=== PATIENT | female | born 1995 | race Caucasian/White ===

== ENCOUNTER 2024-04-19 22:01 | Emergency (ER) | payer BC, SELFPAY ==
--- NOTE | 2024-04-19 21:30 | RT.EKG_ITS ---
APPROVED REPORT Exam: Resting ECG Reason for Exam: Chest Pain Patient Location: E HR:95 bpm ECG Measurements Heart Rate 95 AXIS [place] 146 P 56 QRSd 87 QRS 51 QT 356 T 14 QTc 446 Conclusion Sinus rhythm...normal P axis, V-rate 60- 99 Physician: inverted t waves in III and V1-V3. No Stemi
--- NOTE | 2024-04-19 22:00 | DI.RAD_ITS ---
Exam(s) XR PORTABLE CHEST AP EXAM: XR PORTABLE CHEST AP CLINICAL HISTORY: central chest pressure. TECHNIQUE: 2D digital imaging was performed. COMPARISON: No exams were available for comparison FINDINGS: Single AP portable view. Heart size is upper normal. The mediastinum is not widened. Lungs are clear. No infiltrates nor obvious pleural effusions. IMPRESSION: No acute pulmonary findings on this single AP portable view of the chest. DATA REPOSITORY: RADIATION DOSE DELIVERED:
[2024-04-19 22:07] VITALS: BP 139/81; PULSE 97; RESP 16; TEMP 36.6; O2SAT 100
[2024-04-19 22:20] VITALS: RESP 19
[2024-04-19 22:21] VITALS: RESP 17
--- NOTE | 2024-04-19 22:26 | W.ED.GENAD ---
Discharge Plan Disposition Patient Disposition: Home Condition: Good Discharge Details Chief Complaint: Chest Pain Clinical Impression: Anxiety, Chest discomfort ED Provider: Michael Crandall Home Meds and New Rx's Prescriptions: No Action venlafaxine 100 mg tablet 150 mg PO DAILY clonidine HCl 0.1 mg tablet 0.05 mg PO DAILY Discharge Instructions Instructions: Chest Pain, Adult ED, Anxiety, Adult ED Additional Instructions: At this time as we have discussed together your workup is returned very reassuring. However there are 2 slight abnormalities. Your kidney function is slightly elevated, signifying mild stress on the kidneys. Please drink plenty of fluids and stay well-hydrated. Please avoid kidney irritating medications like ibuprofen. Additionally your thyroid stimulating hormone level is slightly elevated however your functional thyroid numbers are good. Please follow-up with your primary care provider in the next 6 to 12 months for recheck of your thyroid function. If you notice any worsening of your symptoms, or any new symptoms such as vomiting, diarrhea, fever, chills, shortness of breath, chest pain, numbness, weakness, or fainting , please return immediately to the emergency department for reevaluation. Please follow up with your primary care provider as soon as possible for reassessment and reevaluation. As always, it was a pleasure participating in your medical care today. HPI General Date/Time Provider Initiated Documentation: 04/19/24 22:04. HPI Narrative: This is a 28-year-old female with a past medical history of anxiety, who is also on an estrogen-based control, who presents today via EMS for chest discomfort and anxiety attack. Patient lives in [place] but was visiting a friend here in [facility]. They just had breakfast for dinner, and shortly thereafter she developed a pressure-like sensation in the center of her chest which was constant in nature. It continued for the following hour and then she was brought to the ER for further assessment. She did have an episode of nausea and vomiting. But no subsequent episodes. She denies any radiation of the pain. She denies any tearing or ripping sensation. She states that the pain goes directly from the center of her chest to her back. She denies any pleuritic component. She denies any exertional component. It is not improved with anything either. She denies any fever or chills. She states that the pain feels very similar to previous symptoms associated with panic attacks, just slightly worse than normal. She denies any particular aggravating factors including any aggravating social components tonight. She denies any spicy foods tonight. Denies PE risk factors such as recent long car rides, immobilization, recent surgery, prior history of DVT or PE, family history of PE or DVT, morbid obesity, and smoking, hemoptysis, history of cancer. No other complaints at this time. Related Data Home Medications ?Medication ?Instructions ?Recorded ?Confirmed clonidine HCl 0.1 mg tablet 0.05 mg PO DAILY 04/19/24 04/19/24 venlafaxine 100 mg tablet 150 mg PO DAILY 04/19/24 04/19/24 Allergies Allergy/AdvReac Type Severity Reaction Status Date / Time No Known Allergies Allergy Unverified 04/19/24 22:09 General Stated Complaint: Anxiety AVELINA: 3 Review of Systems All systems reviewed & are unremarkable except as noted in HPI and below Exam Narrative Exam Narrative: 1.Const: Well-nourished, Well-developed, appearing stated age 2.Eyes: PERRL, no conjunctival injection, and symmetrical lids. 3.ENT: Atraumatic external nose and ears. Moist MM. Neck: Symmetric, trachea midline, No thyromegaly. 4.CVS: +S1/S2, Peripheral pulses 2+ and equal in all extremities. Brisk capillary refill in all extremities. Radial pulses +2 bilaterally 5.RESP: Unlabored respiratory effort. Clear to auscultation bilaterally. No wheezes rales or rhonchi 6.GI: Soft, Nontender/Nondistended, No hepatosplenomegaly. No guarding or rebound. 7.MSK: Normocephalic/Atraumatic, Extremities w/o deformity or ttp No cyanosis or clubbing, Normal movement of all extremities 8.Skin: Warm, Dry. No rashes or lesions. 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 Sensation grossly intact, no focal neurologic deficits. 10.Psych: (AAO) x3. Appropriate mood and affect Course Vital Signs Vital signs: Vital Signs Temperature 36.6 C 04/19/24 22:07 Pulse 97 H 04/19/24 22:07 Respiratory Rate 16 04/19/24 22:07 Blood Pressure 139/81 04/19/24 22:07 Pulse Oximetry 100 04/19/24 22:07 Temperature 36.6 C 04/19/24 22:07 Temperature Source Temporal Artery Scan 04/19/24 22:07 Pulse 97 H 04/19/24 22:07 Respiratory Rate 17 04/19/24 22:21 Respiratory Effort Normal 04/19/24 22:21 Respiratory Depth Normal 04/19/24 22:21 Respiratory Pattern Normal 04/19/24 22:21 Blood Pressure 139/81 04/19/24 22:07 Blood Pressure Position Supine 04/19/24 22:07 Pulse Oximetry 100 04/19/24 22:07 Oxygen Delivery Method Room Air 04/19/24 22:07 Oxygen Flow Rate 0 04/19/24 22:07 Pain Level 0 04/19/24 22:07 Medical Decision Making This is a 28-year-old female with a past medical history of anxiety, who is also on an estrogen-based control, who presents today via EMS for chest discomfort and anxiety attack. Patient lives in [place] but was visiting a friend here in [facility]. They just had breakfast for dinner, and shortly thereafter she developed a pressure-like sensation in the center of her chest which was constant in nature. It continued for the following hour and then she was brought to the ER for further assessment. She did have an episode of nausea and vomiting. But no subsequent episodes. She denies any radiation of the pain. She denies any tearing or ripping sensation. She states that the pain goes directly from the center of her chest to her back. She denies any pleuritic component. She denies any exertional component. It is not improved with anything either. She denies any fever or chills. She states that the pain feels very similar to previous symptoms associated with panic attacks, just slightly worse than normal. She denies any particular aggravating factors including any aggravating social components tonight. She denies any spicy foods tonight. Denies PE risk factors such as recent long car rides, immobilization, recent surgery, prior history of DVT or PE, family history of PE or DVT, morbid obesity, and smoking, hemoptysis, history of cancer. No other complaints at this time. Exam demonstrates a well-appearing female, minimally tachycardic at 97, blood pressure normal, afebrile. Symptomatology appears inconsistent for myocarditis with no fever, no trauma to suggest pneumothorax. No tearing or ripping sensation to suggest dissection. No cough to suggest pneumonia. Differential includes PE, musculoskeletal strain, esophageal spasm post eating, gastric irritation. Chest pain from a an anxiety/panic attack is highest on the differential given the history of her events, and the correlation with her previous episodes. That being said we will still evaluate for the less likely concerning etiologies as well, monitor closely and reassess. EKG shows no evidence of STEMI, however she does have a small Q wave in lead III, inverted T wave in lead III, inverted T waves in V1 through V3. 11:17 PM On reassessment patient is feeling much better. The chest discomfort has resolved. Her anxiety has resolved. Laboratory workup has returned, D-dimer normal, TSH is high, but free T4 is normal. We discussed this together. Troponin normal. Creatinine slightly elevated at 1.2, but GFR is normal. Discussed this with the patient as well. Patient otherwise feels well and would like to go home. Chest x-ray shows no evidence of pneumothorax or dissection. Patient stable for discharge. Friend is at bedside. Recommend continued fluids at home, hydration, follow-up with PCP for repeat checking of TSH in 6 to 12 months. I have extensively reviewed the treatment plan and discharge instructions with the patient and their family. I have addressed all patient concerns at this time. The patient and family was made aware of what symptoms to monitor for that would warrant a return to the emergency department. Discussed the plan with the patient and family, they demonstrate verbal understanding and agreement with our assessment and plan at this time. The documentation in this chart was dictated using [employer] dictation software. Please excuse any dictation errors. Quality:SDOH Health Related Social Needs: No Data to Display PFSH All Active Problems (Updated 04/19/24 @ 23:20 by Michael Crandall DO) Chest discomfort (Acute) Anxiety (Chronic) Social History Smoking risk assessment performed?: No
[2024-04-19] MEDS: LORazepam 2 MG/ML VIAL 1 MG IVP (22:29)
[2024-04-19] MEDS: Acetaminophen 500 MG TAB 1000 MG PO (22:29)
[2024-04-19 22:33] LABS: Abs Immature Grans 0.01 10^3/uL (0.0-0.06); Absolute Basophil Count 0.03 10^3/uL (0.0-0.2); Absolute Eosinophil Count 0.09 10^3/uL (0.0-0.7); Absolute Lymphocyte Count 2.27 10^3/uL (1.2-3.4); Absolute Monocyte Count 0.44 10^3/uL (0.1-0.8); Absolute Neutrophil Count 4.41 10^3/uL (1.2-6.7); Basophils % 0.4 %; Eosinophils % 1.2 %; HCT 37.9 % (36.0-46.0); HGB 12.9 g/dL (11.2-15.7); Immature Grans % 0.1 %; Lymphocytes % 31.3 %; MCH 29.1 pg (27.0-33.0); MCV 85 fL (80-95); MPV 9.1 fL (8.0-11.0); Monocytes % 6.1 %; Neutrophils % 60.9 %; Platelet Count 297 10^3/uL (130-400); RBC 4.44 10^6/uL (3.93-5.22); RDW 12.7 % (11.7-14.6); RDW-SD 38.9 fL; WBC 7.25 10^3/uL (4.4-10.8)
[2024-04-19 22:41] LABS: Lipase 38 U/L (<78)
[2024-04-19 22:56] LABS: ALT 23 U/L (14-59); AST 15 U/L (15-37); Albumin 3.7 g/dL (3.4-5.0); Alkaline Phosphatase 73 U/L (46-116); Anion Gap 11.2 mmol/L (3-11); BUN 14 mg/dL (7-18); Bilirubin, Total 0.34 mg/dL (0.2-1.0); CO2 25.8 mmol/L (21.0-32.0); CREATININE 1.2 mg/dL (0.55-1.02); Calcium 8.9 mg/dL (8.5-10.1); Chloride 105 mmol/L (98-107); Estimated GFR 63.63 (mL/min/1.73m2); Glucose 118 mg/dL (74-106); Potassium 3.5 mmol/L (3.5-5.1); Sodium 142 mmol/L (136-145); TSH (W/Ref FT4) 6.97 uIU/mL (0.36-3.74); Total Protein 7.7 g/dL (6.4-8.2); Troponin I 6 ng/L (<or=51)
[2024-04-19 23:11] LABS: D-Dimer 271 ng/mlFEU (<500)
[2024-04-19 23:14] LABS: FREE T4 1.02 ng/dL (0.76-1.46)
[2024-04-19 23:22] VITALS: BP 115/74; PULSE 99; RESP 21; TEMP 36.7; O2SAT 97
--- NOTE | 2024-04-20 00:12 | DI.VRAD_ITS ---
PROCEDURE INFORMATION: Exam: XR Chest Exam date and time: 04/19/2024 10:35 PM Age: 28 years old Clinical indication: Other: Central chest pressure TECHNIQUE: Imaging protocol: Radiologic exam of the chest. Views: 1 view. COMPARISON: No relevant prior studies available. FINDINGS: Lungs: No pulmonary consolidation. Pleural spaces: No pleural effusion or pneumothorax. Heart/Mediastinum: Normal-sized heart. Bones/joints: Visualized bony structures grossly intact. IMPRESSION: No active disease is seen in the chest. Dictated and Authenticated by: Graham Paredes MD. Ordering:ESTELLE Rodriguez MD
== END 2024-04-19 23:22 | disposition home or self-care (01) ==
LOC: ER 23:49
PROVIDERS: Emergency Provider Student in an Organized Health Care Education/Training Program; PCP Nurse Practitioner Family
DX: R07.9 Chest pain, unspecified (principal); F41.9 Anxiety disorder, unspecified
CPT/HCPCS: 36415; 80053; 81025; 83690; 93005; 96374; 99285; 71045; 84439; 84443; 84484; 85025; 85379; 93010; 99284; J2060